=== PATIENT | male | born 1960 | race Caucasian/White ===

== ENCOUNTER 2016-08-10 05:49 | Inpatient (IN) | payer OTHER ==
[2016-08-10] MEDS ORDERED: LR 1,000 ML IV ONE (06:13)
[2016-08-10] MEDS ORDERED: LIDOCAINE 1% 5 ML SDV ID PRN (06:13)
[2016-08-10] MEDS ORDERED: CHLORHEXIDINE GLUC HIBICLENS 118 ML BTL TP ONE (07:00)
[2016-08-10] MEDS ORDERED: ACETAMINOPHEN 325 MG TAB PO ONE (07:00)
[2016-08-10] MEDS ORDERED: CEFAZOLIN 2 GM/DEXTR 100 ML IV ONE (07:00)
[2016-08-10] MEDS ORDERED: FAMOTIDINE 20 MG TAB PO ONE (07:00)
[2016-08-10] MEDS ORDERED: ROPI/epiNEPH/KETOROLAC/morphINE JOINT COCKTAIL IU ONE (07:00)
[2016-08-10] MEDS ORDERED: diphenhydrAMINE 25 MG CAP PO PRN (07:02)
[2016-08-10] MEDS ORDERED: POLYETHYLENE GLYCOL 3350 17 GM PKT PO PRN (07:02)
[2016-08-10] MEDS ORDERED: PHARMACY PAIN CONSULT 1 EA MISC PRN (07:02)
[2016-08-10] MEDS ORDERED: BISACODYL 10 MG SUPP PR PRN (07:02)
[2016-08-10] MEDS ORDERED: ONDANSETRON DISINTEGRATING 4 MG TAB PO PRN (07:02)
[2016-08-10] MEDS ORDERED: PROMETHAZINE HCL 25 MG/ML INJ IVP PRN (07:02)
[2016-08-10] MEDS ORDERED: PROMETHAZINE HCL 25 MG SUPPR PR PRN (07:02)
[2016-08-10] MEDS ORDERED: TEMAZEPAM 15 MG CAP PO PRN (07:02)
[2016-08-10] MEDS ORDERED: CYCLOBENZAPRINE 10 MG TAB PO PRN (07:02)
[2016-08-10] MEDS ORDERED: ONDANSETRON 4 MG/2 ML VIAL IVP PRN (07:02)
[2016-08-10] MEDS ORDERED: METOCLOPRAMIDE 10 MG/2 ML VIAL IVP PRN (07:02)
[2016-08-10] MEDS ORDERED: LACTULOSE 20 GM/30 ML UDCUP PO PRN (07:02)
[2016-08-10] MEDS ORDERED: MAGNESIUM HYDROXIDE 30 ML UDCUP PO PRN (07:02)
[2016-08-10] MEDS ORDERED: DIPHENOXYLATE/ATROPINE LOMOTIL 1 TAB PO PRN (07:02)
[2016-08-10] MEDS ORDERED: CITRATE DEXTROSE SOLN 500 ML BAG ONE (07:21)
[2016-08-10] MEDS ORDERED: ceFAZolin 1 GM/5 ML SYR ONE (07:21)
[2016-08-10] MEDS ORDERED: LR 1,000 ML IV SCH (07:30)
[2016-08-10] MEDS ORDERED: MIDAZOLAM 2 MG/2 ML VIAL ONE ×2 (07:36→07:54)
[2016-08-10] MEDS ORDERED: fentaNYL 100 MCG/2 ML INJ ONE (07:36)
[2016-08-10] MEDS ORDERED: PROPOFOL/EMULSION 500 MG/50 ML BOTTLE IV ONE (07:37)
[2016-08-10] MEDS ORDERED: PHENYLEPHRINE HCL 100 MCG/ML SYR ONE (09:00)
[2016-08-10] MEDS ORDERED: DEXAMETHASONE 4 MG/ML VIAL ONE (09:00)
--- NOTE | 2016-08-10 11:36 | DX ---
Portable AP Pelvis (2 Views, at 10:55 AM) Clinical History: 55-year-old male status post anterior approach left MICHI, currently in the PACU. Comparison Study: CT scan, dated March 12, 2016. Findings: In the interim, the patient has undergone a left hip arthroplasty, with anatomic alignment of the femoral and acetabular components. Skin jadiel are seen peripheral laterally, and a surgical drain is in place. There is normally-expected postoperative air in the soft tissues. There are some well-corticated ossific densities above the right greater trochanter, and skin jadiel are seen later al to the right iliac crest. Numerous phleboliths are seen throughout the caudal pelvis. Impression: Status post left hip arthroplasty, with anatomic alignment.
[2016-08-10] MEDS: SENNOSIDES/DOCUSATE SODIUM TAB PO SCH ×2 (11:42→20:34)
[2016-08-10] MEDS: oxyCODONE IR 5 MG TAB PO PRN ×2 (13:01→17:11)
[2016-08-10] MEDS: ACETAMINOPHEN 325 MG TAB PO SCH ×3 (13:01→23:24)
[2016-08-10] MEDS ORDERED: ceFAZolin 2 GM/DEXTROSE 100 ML IV SCH (14:00)
[2016-08-10] MEDS: ceFAZolin 2 GM in D5W 100 ML IV SCH ×2 (14:28→21:58)
--- NOTE | 2016-08-10 15:33 | DX ---
Intraoperative Fluoroscopy of the Left Hip Clinical History: 55-year-old male undergoing a left hip arthroplasty. Findings: Dr. Derek Quintana used 1.4 seconds of fluoroscopy time (exposure dose of 0.15 mGy), and a single spot matrix intraoperative image was acquired at 9:41 a.m. identifying an ongoing left hip art hroplasty with anatomic alignment of the acetabular cup and a temporary femoral intramedullary jig. T here is a screw over the superolateral left acetabulum. Note: This screw is not seen on the subsequen t postoperative image at 10:55 a.m. Impression: Intraoperative fluoroscopy provided during an ongoing hip arthroplasty.
--- NOTE | 2016-08-10 15:49 | PDIAF ---
- Diagnosis Diagnosis: left hip djd Code Status: Full Code - Medication Management Discharge Medications: Medications to Continue on Transfer Aspirin EC [Aspirin EC 81 mg (*)] 81 mg PO DAILY 07/03/16 [Last Taken 2 Weeks Ago] Atomoxetine HCl [Strattera] 40 mg PO DAILY 07/03/16 [Last Taken 08/10/16] Brimonidine 0.15% [ALPHAGAN P 0.15% (RX)] 1 drops EACHEYE TID 07/03/16 [Last Taken 08/10/16] Brinzolamide 1% [Azopt 1%] 1 drops EACHEYE BID 07/03/16 [Last Taken 08/10/16] Latanoprost 0.005% [Xalatan 0.005% (*)] 1 drops EACHEYE HS 07/03/16 [Last Taken 08/10/16] Lisinopril [Zestril 5 mg (*)] 5 mg PO DAILY 07/03/16 [Last Taken 08/10/16] Multivitamins [Multivitamin (*)] 1 each PO DAILY 07/03/16 [Last Taken 2 Weeks Ago] [place]-3 Fatty Acids [Fish Oil 1000 mg (*)] 1,000 mg PO DAILY 07/03/16 [Last Taken 2 Weeks Ago] Rosuvastatin Calcium [Crestor 40mg (*)] 40 mg PO DAILY 07/03/16 [Last Taken ] Zolpidem Tartrate [Zolpidem Tartrate ER] 12.5 mg PO HS 07/03/16 [Last Taken 1 Day Ago] lamoTRIgine [LamICTAL 100 MG (*)] 100 mg PO DAILY 07/03/16 [Last Taken 08/10/16] Bupropion HCl [Wellbutrin Xl] 300 mg PO DAILY 08/10/16 [Last Taken 08/10/16] Levothyroxine [Synthroid 125 mcg (*)] 125 mcg PO DAILY 08/10/16 [Last Taken ] Quetiapine Fumarate [Seroquel Xr] 150 mg PO DAILY@19 08/10/16 [Last Taken ] Discharge Medications: Refer to the Discharge Home Medication list for PRN reason. - Orders Services needed: Physical Therapy Diet Texture: Regular Texture Diet Activity/Weight Bearing Restrictions: wbat. rom as alejandrina, anterior hip precautions. daily dressing changes. may shower without bandage, no soaking or immersion. f/u at two weeks [facility], call for appointment. seek attn for increasing pain, cp , sob. aspirin 325 mg po daily\. eva hose x 2 weeks - Follow Up Care Current Providers and Referrals: Baltazar Calvert MD [Primary Care Provider] -
[2016-08-10] MEDS: LATANOPROST 0.005% 2.5 ML OPHT DROPS EACHEYE SCH ×2 (18:11→20:37)
[2016-08-10] MEDS: BRIMONIDINE 0.15% 5 ML OPHT.BTL EACHEYE SCH ×2 (18:12→20:37)
[2016-08-10] MEDS ORDERED: QUETIAPINE FUMARATE 150 MG PO SCH (19:00)
[2016-08-10] MEDS ORDERED: QUEtiapine FUMARATE 100 MG TAB PO SCH (19:00)
[2016-08-10] MEDS: FAMOTIDINE 20 MG TAB PO SCH (20:35)
[2016-08-10] MEDS: Brinzolamide 1% 10 ml OPHT.BTL EACHEYE SCH (20:38)
[2016-08-10] MEDS ORDERED: ZOLPIDEM TARTRATE 5 MG TAB PO SCH (21:00)
[2016-08-10] MEDS ORDERED: NON-FORMULARY NEW DRUG (Zolpidem Tartrate [Zolpidem Tartrate Er] 12.5 MG) PO SCH (21:00)
[2016-08-10] MEDS ORDERED: ASPIRIN 325 MG TAB PO SCH (21:00)
[2016-08-10 23:28] VITALS: TEMP 97.5
[2016-08-11 06:55] LABS: HEMOGLOBIN 13.3 g/dL (13.7-17.5)
--- NOTE | 2016-08-11 07:18 | PDIAF ---
- Diagnosis Diagnosis: left hip djd Code Status: Full Code - Medication Management Discharge Medications: Medications to Continue on Transfer Atomoxetine HCl [Strattera] 40 mg PO DAILY 07/03/16 [Last Taken 08/10/16] Brimonidine 0.15% [Alphagan P 0.15%] 1 drops EACHEYE TID 07/03/16 [Last Taken ] Brinzolamide 1% [Azopt 1%] 1 drops EACHEYE BID 07/03/16 [Last Taken 08/10/16] Latanoprost 0.005% [Xalatan 0.005% (*)] 1 drops EACHEYE HS 07/03/16 [Last Taken 08/10/16] Lisinopril [Zestril 5 mg (*)] 5 mg PO DAILY 07/03/16 [Last Taken 08/10/16] Multivitamins [Multivitamin (*)] 1 each PO DAILY 07/03/16 [Last Taken 2 Weeks Ago] [place]-3 Fatty Acids [Fish Oil 1000 mg (*)] 1,000 mg PO DAILY 07/03/16 [Last Taken 2 Weeks Ago] Rosuvastatin Calcium [Crestor 40mg (*)] 40 mg PO DAILY 07/03/16 [Last Taken ] Zolpidem Tartrate [Zolpidem Tartrate ER] 12.5 mg PO HS 07/03/16 [Last Taken 1 Day Ago] lamoTRIgine [LamICTAL 100 MG (*)] 100 mg PO DAILY 07/03/16 [Last Taken 08/10/16] Bupropion HCl [Wellbutrin Xl] 300 mg PO DAILY 08/10/16 [Last Taken 08/10/16] Levothyroxine [Synthroid 125 mcg (*)] 125 mcg PO DAILY 08/10/16 [Last Taken ] Quetiapine Fumarate [Seroquel Xr] 150 mg PO DAILY@19 08/10/16 [Last Taken ] Aspirin [Aspirin 325 mg (*)] 325 mg PO HS #0 tab 08/11/16 [Last Taken Unknown] oxyCODONE IR [Oxycodone Ir (*)] 5 - 10 mg PO Q3HRS PRN #80 tab 08/11/16 [Last Taken Unknown] Discharge Medications: Refer to the Discharge Home Medication list for PRN reason. - Orders Services needed: Physical Therapy Diet Recommendation: no restrictions on diet Diet Texture: Regular Texture Diet Activity/Weight Bearing Restrictions: wbat. rom as alejandrina, anterior hip precautions. daily dressing changes. may shower without bandage, no soaking or immersion. f/u at two weeks [facility] [place] [facility], call for appointment. seek attn for increasing pain, cp , sob. aspirin 325 mg po daily\. eva hose x 2 weeks - Follow Up Care Current Providers and Referrals: Baltazar Calvert MD [Primary Care Provider] -
[2016-08-11] MEDS ORDERED: DIAZEPAM 5 MG TAB PO PRN (07:20)
[2016-08-11] MEDS: ACETAMINOPHEN 325 MG TAB PO SCH ×2 (07:39→11:02)
[2016-08-11 07:44] VITALS: BP 107/64; PULSE 84; RESP 16; O2SAT 96
[2016-08-11] MEDS: oxyCODONE IR 5 MG TAB PO PRN ×2 (08:32→11:03)
[2016-08-11] MEDS: FAMOTIDINE 20 MG TAB PO SCH (08:34)
[2016-08-11] MEDS: BRIMONIDINE 0.15% 5 ML OPHT.BTL EACHEYE SCH (08:39)
[2016-08-11] MEDS: Brinzolamide 1% 10 ml OPHT.BTL EACHEYE SCH (08:40)
[2016-08-11] MEDS ORDERED: buPROPion XL 150 MG TAB PO SCH (09:00)
[2016-08-11] MEDS ORDERED: LISINOPRIL 5 MG TAB PO SCH (09:00)
[2016-08-11] MEDS ORDERED: ROSUVASTATIN CALCIUM 40 MG TAB PO SCH (09:00)
[2016-08-11] MEDS ORDERED: NON-FORMULARY NEW DRUG (Bupropion Hcl [Wellbutrin Xl] 300 MG) PO SCH (09:00)
[2016-08-11] MEDS ORDERED: lamoTRIgine 100 MG TAB PO SCH (09:00)
[2016-08-11] MEDS ORDERED: ATOMOXETINE HCL 40 MG PO SCH (09:00)
[2016-08-11] MEDS ORDERED: LEVOTHYROXINE 125 MCG TAB PO SCH (09:00)
[2016-08-11] MEDS: SENNOSIDES/DOCUSATE SODIUM TAB PO SCH (09:13)
--- NOTE | 2016-08-11 09:52 | GDS ---
[f rep st] DISCHARGE SUMMARY RIGHT OF WAY MAN: Osmin Sanz, surgical services assistant. ADMISSION DIAGNOSIS: Left hip degenerative joint disease. DISCHARGE DIAGNOSIS: Left hip degenerative joint disease. PROCEDURE: Left total hip arthroplasty. 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 He has interference with his activities of daily living. Clinical and radiographic fe atures are consistent with hip arthritis. I have therefore recommended total hip replacement. He u nderstood the risks, benefits, alternatives, and wished to proceed. Written consent was signed and placed in the patient's chart. HOSPITAL COURSE: The patient was admitted to the hospital floor after undergoing uncomplicated tota l hip arthroplasty. He tolerated the procedure well. Overnight, he had no complications. At the t lakhwinder of discharge, he is tolerating an oral diet. His pain is well controlled on oral medicines. Hi s dressings are clean, dry, and intact. He has 5- out of 5 strength with hip flexion across his ope rative site. No calf swelling or tenderness. Negative Homans bilaterally. DISCHARGE ACTIVITIES: Weightbearing as tolerated. Anterior hip precautions. May shower without th e bandage. No soaking or immersion. Daily dressing changes. DEMOND hose x2 weeks. DISCHARGE MEDICATIONS: Aspirin 325 mg p.o. daily and oxycodone 5 mg 1-2 every 6 hours p.r.n. pain. FOLLOWUP: Follow up at 2 weeks. Seek attention for increasing redness, swelling, drainage, dischar ge. /[id number]/MODL
== END 2016-08-11 11:25 | disposition home health service (06) | DRG 470 ==
LOC: F3N 05:49
PROVIDERS: ADMIT Orthopaedic Surgery; ATTEND Orthopaedic Surgery
PROC: 0SRB04Z Replacement of Left Hip Joint with Ceramic on Polyethylene Synthetic Substitute, Open Approach (ICD-10-PCS; principal; 2016-08-10 08:00)
PROC: 8E0Y0CZ Robotic Assisted Procedure of Lower Extremity, Open Approach (ICD-10-PCS; principal; 2016-08-10 08:00)
DX: M16.12 Unilateral primary osteoarthritis, left hip (principal); E03.9 Hypothyroidism, unspecified; I10 Essential (primary) hypertension; F31.81 Bipolar II disorder
CPT/HCPCS: 97110-GP; 97116-GP; 97161-GP; 97165-GO; 97530-GP; J0171; J0690; J1100; J1885; J2250; J2370; J2704; J2795; J3010; J7060

== ENCOUNTER → 2016-11-12 | Outpatient (CLI) | payer OTHER | LOC: BMCIMAGING 10:04 | PROVIDERS: ATTEND Orthopaedic Surgery | DX: Z47.1 Aftercare following joint replacement surgery (principal); Z96.642 Presence of left artificial hip joint ==

== ENCOUNTER → 2017-02-10 | Outpatient (CLI) | payer OTHER | LOC: BMCIMAGING 09:01 | PROVIDERS: ATTEND Orthopaedic Surgery | DX: Z96.642 Presence of left artificial hip joint (principal) ==

== ENCOUNTER → 2017-05-27 | Outpatient (CLI) | payer OTHER | LOC: BMCIMAGING 09:16 | PROVIDERS: ATTEND Orthopaedic Surgery | DX: Z47.1 Aftercare following joint replacement surgery (principal) ==